=== PATIENT | female | born 1985 | race African-American/Black ===

== ENCOUNTER 2021-02-06 10:36 | Emergency (ER) | payer MEDICAID ==
[~2021-02-06] VITALS: Ht 167.6 cm; Wt 93.0 kg
[2021-02-06] MEDS ORDERED: TOPUD MT (11:15)
[2021-02-06 11:35] VITALS: BP 129/82
== END 2021-02-06 11:36 | disposition home or self-care (01) ==
LOC: ER 10:36
DX: O26.892 Other specified pregnancy related conditions, second trimester (principal); M25.561 Pain in right knee; Z3A.28 28 weeks gestation of pregnancy; Z98.890 Other specified postprocedural states; V43.62XA Car passenger injured in collision with other type car in traffic accident, initial encounter; Y93.89 Activity, other specified; Y92.488 Other paved roadways as the place of occurrence of the external cause
CPT/HCPCS: 99284

== ENCOUNTER 2024-06-01 10:12 | Emergency (ER) | payer MEDICAID ==
[~2024-06-01] VITALS: Ht 162.6 cm; Wt 79.8 kg
[~2024-06-01 10:12] MED LIST: TOPUD MT
[2024-06-01 10:48] VITALS: O2SAT 100
[2024-06-01] MEDS: ACETAMINOPHEN 325MG TABLET PO STA (12:14)
[2024-06-01] MEDS ORDERED: NAPR-681 PO (14:07)
[2024-06-01 14:10] VITALS: BP 128/82; PULSE 72; RESP 18; TEMP 36.94740; O2SAT 100
== END 2024-06-01 14:28 | disposition home or self-care (01) ==
LOC: ER 10:12
DX: S16.1XXA Strain of muscle, fascia and tendon at neck level, initial encounter (principal); R07.89 Other chest pain; M25.552 Pain in left hip; M25.562 Pain in left knee; V49.40XA Driver injured in collision with unspecified motor vehicles in traffic accident, initial encounter; Y93.89 Activity, other specified; Y92.89 Other specified places as the place of occurrence of the external cause; Y99.8 Other external cause status
CPT/HCPCS: 71045; 73502; 73562; 99284